=== PATIENT | female | born 1980 | race African-American/Black ===

== ENCOUNTER 2019-11-19 15:28 | Emergency (ER) | payer OTHER ==
[2019-11-19 15:57] LABS: Hematocrit 37.1 % (30.3-42.9); Hemoglobin 12.6 gm/dl (10.1-14.3); Mean Corpuscular HGB Conc 34 % (30-34); Mean Corpuscular Volume 88 fl (79-97); Platelet Count 218 K/mm3 (140-440); Red Blood Count 4.24 M/mm3 (3.65-5.03); Red Cell Distribution Width 13.1 % (13.2-15.2)
[2019-11-19 16:00] LABS: Bilirubin,Urine NEG (Negative); Blood,Urine LG (Negative); Color,Urine Colorless (Yellow); Mucus,Urine FEW /HPF; Protein,Urine <15 mg/dL mg/dL (Negative); Urobilinogen,Urine < 2.0 mg/dL (<2.0); WBC,Urine < 1.0 /HPF (0.0-6.0)
[2019-11-19 16:13] LABS: Alanine Aminotransferase 6 units/L (7-56); Albumin 4.6 g/dL (3.9-5); BUN/Creatinine Ratio 32; Blood Urea Nitrogen 16 mg/dL (7-17); Calcium 9.4 mg/dL (8.4-10.2); Hemolysis Index 14
[2019-11-19] MEDS ORDERED: ACETAMINOPHEN 325 MG TAB PO ONE (16:18)
--- NOTE | 2019-11-19 16:41 | Emergency Department Report ---
ED General Adult HPI - General Chief complaint: Abdominal Pain Stated complaint: 9 WKS PREG, CHEST PAIN Time Seen by Provider: 11/19/19 15:54 Source: business services coordinator Mode of arrival: Ambulatory Limitations: Language Barrier - History of Present Illness Initial comments: Language line used for Palauan interpretation Patient is a 39-year-old female who presents the emergency room with complaints of vaginal bleeding that began 3 days ago. She states that it became slightly heavier today. She has associated suprapubic abdominal pain. She states that she is currently 9 weeks . She has not had her first ultrasound yet. She goes to [facility]. She states that she is only had to change her pad twice today. She denies any nausea, vomiting, diarrhea, fever, dysuria. Her last menstrual cycle was 09/18/2019. /P:1/A:2 Severity scale (0 -10): 10 - Related Data Allergies Allergy/AdvReac Type Severity Reaction Status Date / Time No Known Allergies Allergy Unverified 11/19/19 15:42 ED Review of Systems ROS: Stated complaint: 9 WKS PREG, CHEST PAIN Other details as noted in HPI Comment: All other systems reviewed and negative ED Past Medical Hx - Past Medical History Previous Medical History?: Yes Hx Asthma: Yes - Surgical History Past Surgical History?: No - Social History Smoking Status: Never Smoker Substance Use Type: None ED Physical Exam - General Limitations: Language Barrier General appearance: alert, in no apparent distress - Head Head exam: Present: atraumatic, normocephalic - Eye Eye exam: Present: normal appearance - ENT ENT exam: Present: mucous membranes moist - Respiratory Respiratory exam: Present: normal lung sounds bilaterally. Absent: respiratory distress, wheezes, rales, rhonchi, stridor, chest wall tenderness, accessory muscle use, decreased breath sounds, prolonged expiratory - Cardiovascular Cardiovascular Exam: Present: regular rate, normal rhythm, normal heart sounds. Absent: systolic murmur, diastolic murmur, rubs, gallop - GI/Abdominal GI/Abdominal exam: Present: soft, normal bowel sounds. Absent: distended, tenderness, guarding, rebound, rigid - Neurological Exam Neurological exam: Present: alert, oriented X3 - Psychiatric Psychiatric exam: Present: normal affect, normal mood - Skin Skin exam: Present: warm, dry, intact ED Medical Decision Making - Lab Data Result diagrams: 11/19/19 15:48 11/19/19 15:58 Lab Results 11/19/19 11/19/19 11/19/19 Range/Units 15:48 15:48 15:48 WBC 9.3 (4.5-11.0) K/mm3 RBC 4.24 (3.65-5.03) M/mm3 Hgb 12.6 (10.1-14.3) gm/dl Hct 37.1 (30.3-42.9) % MCV 88 (79-97) fl MCH 30 (28-32) pg MCHC 34 (30-34) % RDW 13.1 L (13.2-15.2) % Plt Count 218 (140-440) K/mm3 Sodium (137-145) mmol/L Potassium (3.6-5.0) mmol/L Chloride (98-107) mmol/L Carbon Dioxide (22-30) mmol/L Anion Gap mmol/L BUN (7-17) mg/dL Creatinine (0.7-1.2) mg/dL Estimated GFR ml/min BUN/Creatinine Ratio % Glucose (65-100) mg/dL Calcium (8.4-10.2) mg/dL Total Bilirubin (0.1-1.2) mg/dL AST (5-40) units/L ALT (7-56) units/L Alkaline Phosphatase (35-129) units/L Total Protein (6.3-8.2) g/dL Albumin (3.9-5) g/dL Albumin/Globulin Ratio % HCG, Quant 47923 H (0-4) mIU/mL Urine Color Colorless (Yellow) Urine Turbidity Clear (Clear) Urine pH 7.0 (5.0-7.0) Ur Specific Ford 1.002 L (1.003-1.030) Urine Protein <15 mg/dl (Negative) mg/dL Urine Glucose (UA) Neg (Negative) mg/dL Urine Ketones Neg (Negative) mg/dL Urine Blood Lg (Negative) Urine Nitrite Neg (Negative) Urine Bilirubin Neg (Negative) Urine Urobilinogen < 2.0 (<2.0) mg/dL Ur Leukocyte Esterase Neg (Negative) Urine WBC (Auto) < 1.0 (0.0-6.0) /HPF Urine RBC (Auto) 1.0 (0.0-6.0) /HPF U Epithel Cells (Auto) < 1.0 (0-13.0) /HPF Urine Mucus Few /HPF Blood Type 11/19/19 11/19/19 Range/Units 15:48 15:58 WBC (4.5-11.0) K/mm3 RBC (3.65-5.03) M/mm3 Hgb (10.1-14.3) gm/dl Hct (30.3-42.9) % MCV (79-97) fl MCH (28-32) pg MCHC (30-34) % RDW (13.2-15.2) % Plt Count (140-440) K/mm3 Sodium 139 (137-145) mmol/L Potassium 3.7 (3.6-5.0) mmol/L Chloride 100.2 (98-107) mmol/L Carbon Dioxide 24 (22-30) mmol/L Anion Gap 19 mmol/L BUN 16 (7-17) mg/dL Creatinine 0.5 L (0.7-1.2) mg/dL Estimated GFR > 60 ml/min BUN/Creatinine Ratio 32 % Glucose 90 (65-100) mg/dL Calcium 9.4 (8.4-10.2) mg/dL Total Bilirubin 0.30 (0.1-1.2) mg/dL AST 14 (5-40) units/L ALT 6 L (7-56) units/L Alkaline Phosphatase 46 (35-129) units/L Total Protein 7.7 (6.3-8.2) g/dL Albumin 4.6 (3.9-5) g/dL Albumin/Globulin Ratio 1.5 % HCG, Quant (0-4) mIU/mL Urine Color (Yellow) Urine Turbidity (Clear) Urine pH (5.0-7.0) Ur Specific Ford (1.003-1.030) Urine Protein (Negative) mg/dL Urine Glucose (UA) (Negative) mg/dL Urine Ketones (Negative) mg/dL Urine Blood (Negative) Urine Nitrite (Negative) Urine Bilirubin (Negative) Urine Urobilinogen (<2.0) mg/dL Ur Leukocyte Esterase (Negative) Urine WBC (Auto) (0.0-6.0) /HPF Urine RBC (Auto) (0.0-6.0) /HPF U Epithel Cells (Auto) (0-13.0) /HPF Urine Mucus /HPF Blood Type O POSITIVE - Radiology Data Radiology results: report reviewed ULTRASOUND OBSTETRIC INDICATION / CLINICAL INFORMATION: Pelvic and right lower quadrant pain. Clinical Gestational Age (GA): 7 weeks 1 day TECHNIQUE: Transabdominal. COMPARISON: None available. FINDINGS: GESTATIONAL SAC: Well-defined oval shape and intrauterine in location. Mean gestational sac diameter of 2.2 cm corresponds to 7 weeks 1 day of gestational age. YOLK SAC: None seen No embryo or pole is seen. ADNEXA: No significant abnormality. FREE FLUID: None. ADDITIONAL FINDINGS: None. IMPRESSION: The finding of an intrauterine gestational sac with a mean diameter of 2.2 cm and no visible embryo is suspicious for, but not diagnostic of, failure. Continued follow- up with serial measurement of beta-hCG is recommended. Signer Name: Regulo Young MD Signed: 11/19/2019 5:40 PM Workstation Name: [id number] Transcribed By: MASTER Dictated By: Regulo Young MD Electronically Authenticated By: Regulo Young MD Signed Date/Time: 11/19/191739 DD/ 34 TD/TT: - Medical Decision Making Language line used for Palauan interpretation Patient is a 39-year-old female who presents the emergency room with complaints of vaginal bleeding that began 3 days ago. She states that it became slightly heavier today. She has associated suprapubic abdominal pain. She states that she is currently 9 weeks . She has not had her first ultrasound yet. She goes to [facility]. She states that she is only had to change her pad twice today. She denies any nausea, vomiting, diarrhea, fever, dysuria. Her last menstrual cycle was 09/18/2019. /P:1/A:2. Vitals are normal. No abdominal tenderness on exam, no guarding, no rebound, no abdominal distention. H&[place] [id number]. Patient is Rh+. US OB: The finding of an intrauterine gestational sac with a mean diameter of 2.2 cm and no visible embryo is suspicious for, but not diagnostic of, failure. Continued follow-up with serial measurement of beta-hCG is recommended. Discussed all results with patient and patient was given ultrasound report. Discussed with patient the importance of following up with [facility] in 2 days for repeat hCG quant. advised pt Please practice pelvic rest. Please follow-up with [facility] in the next 2 days. You need to have a repeat hCG quant in 2 [place] [id number]. Return to the emergency room for any new or worsening symptoms. - Differential Diagnosis IUP, ectopic, subchorionic hemorrhage, threatened/spontaneous miscarriage Critical care attestation.: If time is entered above; I have spent that time in minutes in the direct care of this critically ill patient, excluding procedure time. ED Disposition Clinical Impression: Threatened miscarriage Disposition: DC-01 TO HOME OR SELFCARE Is pt being admited?: No Does the pt Need Aspirin: No Condition: Stable Instructions: Threatened Miscarriage (ED) Additional Instructions: Please practice pelvic rest. Please follow-up with [facility] in the next 2 days. You need to have a repeat hCG quant in 2 [place] [id number]. Return to the emergency room for any new or worsening symptoms. Referrals: [facility] [Provider Group] - 2-3 Days Time of Disposition: 17:50 Print Language: KAZAKH
--- NOTE | 2019-11-19 17:44 | Ultrasound Report ---
ULTRASOUND OBSTETRIC INDICATION / CLINICAL INFORMATION: Pelvic and right lower quadrant pain. Clinical Gestational Age (GA): 7 weeks 1 day TECHNIQUE: Transabdominal. COMPARISON: None available. FINDINGS: GESTATIONAL SAC: Well-defined oval shape and intrauterine in location. Mean gestational sac diameter of 2.2 cm corresponds to 7 weeks 1 day of gestational age. YOLK SAC: None seen No embryo or pole is seen. ADNEXA: No significant abnormality. FREE FLUID: None. ADDITIONAL FINDINGS: None. IMPRESSION: The finding of an intrauterine gestational sac with a mean diameter of 2.2 cm and no visible embryo i s suspicious for, but not diagnostic of, failure. Continued follow-up with serial measureme nt of beta-hCG is recommended. Signer Name: Regulo Young MD Signed: 11/19/2019 5:40 PM Workstation Name: [id number]
[2019-11-20 12:28] VITALS: BP 115/72
== END 2019-11-19 18:25 | disposition home or self-care (01) ==
LOC: ED 15:28
DX: O20.0 Threatened abortion (principal); O99.511 Diseases of the respiratory system complicating pregnancy, first trimester; J45.909 Unspecified asthma, uncomplicated; Z3A.09 9 weeks gestation of pregnancy
CPT/HCPCS: 36415; 76801; 80053; 81001; 84702; 85027; 86900; 86901

== ENCOUNTER 2020-12-02 11:54 | Emergency (ER) | payer SELFPAY ==
--- NOTE | 2020-12-02 12:32 | Event Note ---
ED Screening Note Date of service: 12/02/20 Time: 12:30 ED Screening Note: [facility] and vomiting. Patient is about 8 weeks . Started having severe abdominal pain last night and this morning started having severe bleeding. She is G3, P1 Ab1 This initial assessment/diagnostic orders/clinical plan/treatment(s) is/are subject to change based on patients health status, clinical progression and re- assessment by fellow clinical providers in the ED. Further treatment and workup at subsequent clinical providers discretion. Patient/guardian urged not to elope from the ED as their condition may be serious if not clinically assessed and managed. Initial orders include: Labs
--- NOTE | 2020-12-02 13:32 | Emergency Department Report ---
ED Female HPI - General Chief complaint: Abdominal Pain Stated complaint: Miscarriage Time Seen by Provider: 12/02/20 12:29 Source: patient, family, national sales executive (Tajik national sales executive: [id number]), RN notes reviewed Mode of arrival: Ambulatory Limitations: No Limitations - History of Present Illness Initial comments: The patient was evaluated in the emergency department for symptoms described in the history of present illness. He/she was evaluated in the context of the global COVID-19 pandemic, which necessitated consideration that the patient might be at risk for infection with the virus that causes COVID-19. Institutional protocols and algorithms that pertain to the evaluation of patients at risk for COVID-19 are in a state of rapid change based on information released by regulatory bodies including the CDC and federal and state organizations. These policies and algorithms were followed during the patient's care in the emergency department. Please note that these policies, procedures and recommendations changed on a rapid basis. During the history and physical examination, I am chaperoned by nurse Liz Álvarez Taj[place] national sales executive: [phone] This is a 40-year-old female. Her [facility] doctor is [facility]. She is 2, para 0. She was referred to the emergency room by her outpatient [facility] group for presumed miscarriage. Patient complains of lower abdominal cramping, nausea, and vaginal bleeding. Symptoms present since yesterday. She has had an outpatient ultrasound, but does not recall what it showed. The patient only complains of lower abdominal cramping and denies additional pain in symptoms. The patient denies urinary symptoms. MD Complaint: vaginal bleeding -: Gradual, days(s) Location: suprapubic Severity: mild Quality: cramping Consistency: intermittent Improves with: none Worsens with: none Are you Now?: Yes (Patient reports miscarriage) - Related Data Previous Rx's Medication Instructions Recorded Last Taken Type Acetaminophen [Tylenol] 325 mg PO Q4HR PRN #30 capsule 12/02/20 Unknown Rx Ibuprofen [Motrin] 200 mg PO Q6H PRN #30 tablet 12/02/20 Unknown Rx Ondansetron [Zofran Odt] 4 mg PO Q8HR PRN #20 tab.rapdis 12/02/20 Unknown Rx Allergies Allergy/AdvReac Type Severity Reaction Status Date / Time No Known Allergies Allergy Unverified 11/19/19 15:42 ED Review of Systems ROS: Stated complaint: ABDOMINAL PAIN Other details as noted in HPI Constitutional: fever Respiratory: denies: cough Cardiovascular: denies: chest pain Gastrointestinal: abdominal pain Genitourinary: abnormal menses Musculoskeletal: denies: back pain Neurological: weakness Hematological/Lymphatic: denies: easy bleeding ED Past Medical Hx - Past Medical History Previous Medical History?: Yes Hx Asthma: Yes - Surgical History Past Surgical History?: No - Social History Smoking Status: Never Smoker Substance Use Type: None - Medications Home Medications: Home Medications Medication Instructions Recorded Confirmed Last Taken Type Acetaminophen [Tylenol] 325 mg PO Q4HR PRN #30 capsule 12/02/20 Unknown Rx Ibuprofen [Motrin] 200 mg PO Q6H PRN #30 tablet 12/02/20 Unknown Rx Ondansetron [Zofran Odt] 4 mg PO Q8HR PRN #20 tab.rapdis 12/02/20 Unknown Rx ED Physical Exam - General Limitations: Language Barrier General appearance: alert, in no apparent distress - Head Head exam: Present: atraumatic, normocephalic - Eye Eye exam: Present: normal appearance, EOMI. Absent: nystagmus - ENT ENT exam: Present: normal exam, normal orophraynx, mucous membranes moist, normal external ear exam - Neck Neck exam: Present: normal inspection, full ROM. Absent: tenderness, meningismus - Respiratory Respiratory exam: Present: normal lung sounds bilaterally. Absent: respiratory distress, wheezes, rales, rhonchi, stridor - Cardiovascular Cardiovascular Exam: Present: regular rate, normal rhythm, normal heart sounds. Absent: bradycardia, tachycardia, irregular rhythm, systolic murmur, diastolic murmur, rubs, gallop - GI/Abdominal GI/Abdominal exam: Present: soft. Absent: distended, tenderness, guarding, rebound, rigid, pulsatile mass - External exam: Present: normal external exam, bleeding (Minimal vaginal bleeding noted), other (Chaperoned by nurse Liz Álvarez) - Extremities Exam Extremities exam: Present: normal inspection, full ROM, other (2+ pulses noted in the bilateral upper and lower extremities. There is no palpable cord. negative Homans sign. Muscular compartments are soft. The pelvis is stable.). Absent: pedal edema, calf tenderness - Back Exam Back exam: Present: normal inspection, full ROM. Absent: tenderness, CVA tenderness (R), CVA tenderness (L), paraspinal tenderness, vertebral tenderness - Neurological Exam Neurological exam: Present: alert, other (No facial droop. Tongue midline. Extraocular movements intact bilaterally. Facial sensation intact to light touch in V1, V2, V3 distribution bilaterally. 5 and a 5 strength in 4 extrem ities. Sensation intact to light touch in 4 extremities.) - Psychiatric Psychiatric exam: Present: flat affect - Skin Skin exam: Present: warm, dry, intact, normal color. Absent: rash ED Course Vital Signs 12/02/20 12/02/20 12/02/20 12:24 16:11 17:01 Temperature 98.2 F Pulse Rate 109 H Respiratory 18 Rate Blood Pressure 103/62 Blood Pressure 97/63 [Right] O2 Sat by Pulse 99 100 Oximetry O2 Sat by Pulse 99 Oximetry [ Digit-Finger] - Reevaluation(s) Reevaluation #1: 12/02/20 14:25 Differential diagnosis, including but limited to: Miscarriage, retained products of conception Assessment and plan: 40-year-old female, who is 2, para 0, presenting with lower abdominal cramping without tenderness, scant vaginal bleeding, with probable natural history of miscarriage. Tachycardia resolved. Pelvic ultrasound pending. Has not endorsed any urinary symptoms and specifically denies dysuria. Counseled patient that she is likely experiencing natural history of miscarriage. Laboratory studies pending, ultrasound pending, reassess. Reevaluation #2: 12/02/20 16:04 Discussed patient's history, physical, pertinent laboratory studies and imaging studies with OB on-call, Dr. Saint Monge. She indicates she will have somebody from the group contact the patient to arrange outpatient follow-up, but she requested recommends 48-hour follow-up in the emergency room for repeat CBC, and quant hCG. Tachycardia resolved. Reevaluation #3: 12/02/20 16:11 Heart rate 68 bpm. Blood pressure 109/60. No active vomiting - Pulse Oximetry Interpretation Digit-Finger Initial Pulse Oximetry Readin O2 Sat by Pulse Oximetry: 99 Actions Taken: none ED Medical Decision Making - Lab Data Result diagrams: 12/02/20 13:18 12/02/20 13:18 Vital Signs 12/02/20 12:24 Temperature 98.2 F Pulse Rate 109 H Respiratory 18 Rate Blood Pressure 97/63 [Right] O2 Sat by Pulse 99 Oximetry Lab Results 12/02/20 12/02/20 12/02/20 Range/Units 13:18 13:18 13:18 WBC 8.8 (4.5-11.0) K/mm3 RBC 3.83 (3.65-5.03) M/mm3 Hgb 11.4 (10.1-14.3) gm/dl Hct 33.6 (30.3-42.9) % MCV 88 (79-97) fl MCH 30 (28-32) pg MCHC 34 (30-34) % RDW 13.8 (13.2-15.2) % Plt Count 206 (140-440) K/mm3 Seg Neutrophils % Employment Security Officer Albumin/Globulin Ratio 1.5 % Blood Type O POSITIVE Ord Rhogam Gestat Weeks Rh pos WEEKS Vital Signs 12/02/20 12/02/20 12:24 14:28 Temperature 98.2 F Pulse Rate 109 H Respiratory 18 Rate Blood Pressure 97/63 [Right] O2 Sat by Pulse 99 Oximetry O2 Sat by Pulse 99 Oximetry [ Digit-Finger] Vital Signs 12/02/20 12/02/20 12:24 14:28 Temperature 98.2 F Pulse Rate 109 H Respiratory 18 Rate Blood Pressure 97/63 [Right] O2 Sat by Pulse 99 Oximetry O2 Sat by Pulse 99 Oximetry [ Digit-Finger] Lab Results 12/02/20 12/02/20 12/02/20 Range/Units 13:18 13:18 13:18 WBC 8.8 (4.5-11.0) K/mm3 RBC 3.83 (3.65-5.03) M/mm3 Hgb 11.4 (10.1-14.3) gm/dl Hct 33.6 (30.3-42.9) % MCV 88 (79-97) fl MCH 30 (28-32) pg MCHC 34 (30-34) % RDW 13.8 (13.2-15.2) % Plt Count 206 (140-440) K/mm3 Add Manual Diff Complete Total Counted 100 Seg Neutrophils % Employment Security Officer Seg Neuts % (Manual) 96.0 H (40.0-70.0) % Lymphocytes % (Manual) 2.0 L (13.4-35.0) % Monocytes % (Manual) 2.0 (0.0-7.3) % Nucleated RBC % Not Reportable Seg Neutrophils # Man 8.4 H (1.8-7.7) K/mm3 Band Neutrophils # 0.0 K/mm3 Lymphocytes # (Manual) 0.2 L (1.2-5.4) K/mm3 Abs React Lymphs (Man) 0.0 K/mm3 Monocytes # (Manual) 0.2 (0.0-0.8) K/mm3 Eosinophils # (Manual) 0.0 (0.0-0.4) K/mm3 Basophils # (Manual) 0.0 (0.0-0.1) K/mm3 Metamyelocytes # 0.0 K/mm3 Myelocytes # 0.0 K/mm3 Promyelocytes # 0.0 K/mm3 Blast Cells # 0.0 K/mm3 WBC Morphology Not Reportable Hypersegmented Neuts Not Reportable Hyposegmented Neuts Not Reportable Hypogranular Neuts Not Reportable Smudge Cells Not Reportable Toxic Granulation Not Reportable Toxic Vacuolation Not Reportable Dohle Bodies Not Reportable Pelger-Huet Anomaly Not Reportable Jose Rods Not Reportable Platelet Estimate Consistent w auto Clumped Platelets Not Reportable Plt Clumps, EDTA Not Reportable Large Platelets Not Reportable Giant Platelets Not Reportable Platelet Satelliting Not Reportable Plt Morphology Comment Not Reportable RBC Morphology Normal Dimorphic RBCs Not Reportable Polychromasia Not Reportable Hypochromasia Not Reportable Poikilocytosis Not Reportable Anisocytosis Not Reportable Microcytosis Not Reportable Macrocytosis Not Reportable Spherocytes Not Reportable Pappenheimer Bodies Not Reportable Sickle Cells Not Reportable Target Cells Not Reportable Tear Drop Cells Not Reportable Ovalocytes Not Reportable Helmet Cells Not Reportable Gallego-Edmond Bodies Not Reportable [place] Rings Not Reportable Kiley Cells Not Reportable Bite Cells Not Reportable Crenated Cell Not Reportable Elliptocytes Not Reportable Acanthocytes (Spur) Not Reportable Rouleaux Not Reportable Hemoglobin C Crystals Not Reportable Schistocytes Not Reportable Malaria parasites Not Reportable Mario Bodies Not Reportable Hem Pathologist Commnt No Sodium 136 L (137-145) mmol/L Potassium 3.5 L (3.6-5.0) mmol/L Chloride 102.4 (98-107) mmol/L Carbon Dioxide 22 (22-30) mmol/L Anion Gap 15 mmol/L BUN 10 (7-17) mg/dL Creatinine 0.4 L (0.6-1.2) mg/dL Estimated GFR > 60 ml/min BUN/Creatinine Ratio 25 % Glucose 106 H (65-100) mg/dL Calcium 8.9 (8.4-10.2) mg/dL Magnesium 1.90 (1.7-2.3) mg/dL Total Bilirubin 0.60 (0.1-1.2) mg/dL AST 13 (5-40) units/L ALT 7 (7-56) units/L Alkaline Phosphatase 46 (35-129) units/L Total Protein 7.2 (6.3-8.2) g/dL Albumin 4.3 (3.9-5) g/dL Albumin/Globulin Ratio 1.5 % Lipase 18 (13-60) units/L HCG, Quant 2237 H (0-4) mIU/mL Blood Type Ord Rhogam Gestat Weeks WEEKS 12/02/20 Range/Units 13:18 WBC (4.5-11.0) K/mm3 RBC (3.65-5.03) M/mm3 Hgb (10.1-14.3) gm/dl Hct (30.3-42.9) % MCV (79-97) fl MCH (28-32) pg MCHC (30-34) % RDW (13.2-15.2) % Plt Count (140-440) K/mm3 Add Manual Diff Total Counted Seg Neutrophils % Seg Neuts % (Manual) (40.0-70.0) % Lymphocytes % (Manual) (13.4-35.0) % Monocytes % (Manual) (0.0-7.3) % Nucleated RBC % Seg Neutrophils # Man (1.8-7.7) K/mm3 Band Neutrophils # K/mm3 Lymphocytes # (Manual) (1.2-5.4) K/mm3 Abs React Lymphs (Man) K/mm3 Monocytes # (Manual) (0.0-0.8) K/mm3 Eosinophils # (Manual) (0.0-0.4) K/mm3 Basophils # (Manual) (0.0-0.1) K/mm3 Metamyelocytes # K/mm3 Myelocytes # K/mm3 Promyelocytes # K/mm3 Blast Cells # K/mm3 WBC Morphology Hypersegmented Neuts Hyposegmented Neuts Hypogranular Neuts Smudge Cells Toxic Granulation Toxic Vacuolation Dohle Bodies Pelger-Huet Anomaly Jose Rods Platelet Estimate Clumped Platelets Plt Clumps, EDTA Large Platelets Giant Platelets Platelet Satelliting Plt Morphology Comment RBC Morphology Dimorphic RBCs Polychromasia Hypochromasia Poikilocytosis Anisocytosis Microcytosis Macrocytosis Spherocytes Pappenheimer Bodies Sickle Cells Target Cells Tear Drop Cells Ovalocytes Helmet Cells Gallego-Edmond Bodies [place] Rings [place] Cells Bite Cells Crenated Cell Elliptocytes Acanthocytes (Spur) Rouleaux Hemoglobin C Crystals Schistocytes Malaria parasites Mario Bodies Hem Pathologist Commnt Sodium (137-145) mmol/L Potassium (3.6-5.0) mmol/L Chloride (98-107) mmol/L Carbon Dioxide (22-30) mmol/L Anion Gap mmol/L BUN (7-17) mg/dL Creatinine (0.6-1.2) mg/dL Estimated GFR ml/min BUN/Creatinine Ratio % Glucose (65-100) mg/dL Calcium (8.4-10.2) mg/dL Magnesium (1.7-2.3) mg/dL Total Bilirubin (0.1-1.2) mg/dL AST (5-40) units/L ALT (7-56) units/L Alkaline Phosphatase (35-129) units/L Total Protein (6.3-8.2) g/dL Albumin (3.9-5) g/dL Albumin/Globulin Ratio % Lipase (13-60) units/L HCG, Quant (0-4) mIU/mL Blood Type O POSITIVE Ord Rhogam Gestat Weeks Rh pos WEEKS - Radiology Data Radiology results: pending, report reviewed, image reviewed [facility] [address] [place] [address] Ultrasound Report Signed Patient: ERICA WILLOUGHBY MR#: [id number] : 1980 Acct:[id number] Age/Sex: 40 / F ADM Date: 12/02/20 Loc: ED Attending Dr: Ordering Physician: DANITZA ROBERTSON MD Date of Service: 12/02/20 Procedure(s): US OB <= 14 weeks fetus Accession Number(s): [id number] cc: DANITZA ROBERTSON MD FIRSTTRIME[facility] OBSTETRIC ULTRASOUND HISTORY: Lower abdominal cramping and miscarriage COMPARISON: 11/19/2019 TECHNIQUE: Routine transabdominal OB ultrasound performed. FINDINGS: The uterus is anteverted and mildly enlarged measuring 12.0 x 4.6 x 7.1 cm. No uterine mass is identified. The endometrium near the uterine fundus is normal measuring 5.7 mm. There is impressive thickening and heterogeneity of the lower endometrial segment and cervical canal measuring up to 3.0 cm in diameter. This presumably represents embryonic tissue and is consistent with an impending . The right ovary contains a 2.3 cm simple appearing cyst and measures 3.1 x 2.2 x 4.0 cm. The left ovary is unremarkable measuring 2.6 x 1.6 x 1.7 cm. No pelvic fluid is demonstrated. IMPRESSION No normal intrauterine is identified. An impending spontaneous is suspected as described. 2.3 cm simple appearing right ovarian cyst Signer Name: Contreras Garcia Jr, MD Signed: 12/02/2020 4:02 PM Workstation Name: [id number] Transcribed By: TTR Dictated By: CONTRERAS GARCIA JR, MD Electronically Authenticated By: CONTRERAS GARCIA JR, MD Signed Date/Time: 12/02/20 1602 DD/ 1556 Critical care attestation.: If time is entered above; I have spent that time in minutes in the direct care of this critically ill patient, excluding procedure time. ED Disposition Clinical Impression: Miscarriage, Ovarian cyst Disposition: DC-01 TO HOME OR SELFCARE Is pt being admited?: No Does the pt Need Aspirin: No Condition: Good Instructions: Miscarriage, [id number], Managing Loss, Abdominal Pain (ED) Additional Instructions: Ultrasound today demonstrated a nonspecific cystlike cystlike structure in the uterus, and quantitative hCG/ test was: 2237 The patient has most likely experienced a miscarriage. However, we recommend follow-up in 2 days / 48 hours for repeat ultrasound, and quantitative hCG. We recommend pelvic rest, bedrest, avoidance of heavy lifting, and avoidance of sexual activity. Please follow-up in 2 days for a repeat ultrasound, and for repeat laboratory studies. Patient may follow-up here in the emergency room, or with her outpatient [facility] physician. Please return to the emergency room right away with new pain, worsened pain, migration of pain, projectile vomiting, change in mental status, confusion, inability to tolerate liquid feeds, new, worsened or different symptoms not present on the initial emergency room evaluation. Patient will be prescribed pain medication and nausea medication. Please have your [facility] provider contact the medical records department to obtain copies of laboratory studies and radiology results. Prescriptions: Ibuprofen [Motrin] 200 mg PO Q6H PRN #30 tablet PRN Reason: Pain , Severe (7-10) Acetaminophen [Tylenol] 325 mg PO Q4HR PRN #30 capsule PRN Reason: Pain , Severe (7-10) Ondansetron [Zofran Odt] 4 mg PO Q8HR PRN #20 tab.rapdis PRN Reason: Nausea Referrals: [facility] [Provider Group] - 12/04/20 9:00 am Forms: Work/School Release Form(ED)
[2020-12-02] MEDS ORDERED: LACTATED RINGERS 1,000 ML IV ONE (13:50)
[2020-12-02] MEDS ORDERED: ONDANSETRON 4 MG/2 ML INJ IV ONE (13:50)
[2020-12-02] MEDS ORDERED: ACETAMINOPHEN 325 MG TAB PO ONE (13:50)
[2020-12-02 13:53] LABS: Hematocrit 33.6 % (30.3-42.9); Hemoglobin 11.4 gm/dl (10.1-14.3); Mean Corpuscular HGB Conc 34 % (30-34); Mean Corpuscular Volume 88 fl (79-97); Platelet Count 206 K/mm3 (140-440); Red Blood Count 3.83 M/mm3 (3.65-5.03); Red Cell Distribution Width 13.8 % (13.2-15.2)
[2020-12-02 14:19] LABS: Alanine Aminotransferase 7 units/L (7-56); Albumin 4.3 g/dL (3.9-5); Blood Urea Nitrogen 10 mg/dL (7-17); Calcium 8.9 mg/dL (8.4-10.2); Hemolysis Index 5
[2020-12-02 14:37] LABS: BUN/Creatinine Ratio 25
[2020-12-02 14:45] LABS: Platelet Estimate Consistent w Auto; RBC Morphology Normal; Total Cells Counted 100
--- NOTE | 2020-12-02 16:06 | Ultrasound Report ---
FIRSTTRIMESTER OBSTETRIC ULTRASOUND HISTORY: Lower abdominal cramping and miscarriage COMPARISON: 11/19/2019 TECHNIQUE: Routine transabdominal OB ultrasound performed. FINDINGS: The uterus is anteverted and mildly enlarged measuring 12.0 x 4.6 x 7.1 cm. No uterine mass is identi fied. The endometrium near the uterine fundus is normal measuring 5.7 mm. There is impressive thicken ing and heterogeneity of the lower endometrial segment and cervical canal measuring up to 3.0 cm in d iameter. This presumably represents embryonic tissue and is consistent with an impending . The right ovary contains a 2.3 cm simple appearing cyst and measures 3.1 x 2.2 x 4.0 cm. The left ova ry is unremarkable measuring 2.6 x 1.6 x 1.7 cm. No pelvic fluid is demonstrated. IMPRESSION No normal intrauterine is identified. An impending spontaneous is suspected as zane cribed. 2.3 cm simple appearing right ovarian cyst Signer Name: Contreras Garcia Jr, MD Signed: 12/02/2020 4:02 PM Workstation Name: [id number]
[2020-12-02 18:56] VITALS: BP 103/62
== END 2020-12-02 16:15 | disposition home or self-care (01) ==
LOC: ED 11:54
DX: O03.9 Complete or unspecified spontaneous abortion without complication (principal); O26.90 Pregnancy related conditions, unspecified, unspecified trimester; N83.201 Unspecified ovarian cyst, right side; J45.909 Unspecified asthma, uncomplicated; Z3A.00 Weeks of gestation of pregnancy not specified
CPT/HCPCS: 36415; 76801; 80053; 83690; 83735; 84702; 85007; 85025; 86900; 86901; 96361; 96374; 99284; J2405; J7120

== ENCOUNTER 2021-03-20 09:58 | Emergency (ER) | payer SELFPAY ==
[2021-03-20] MEDS ORDERED: HYDROcodone/ACETAMINOPHEN 5-325 MG TAB PO ONE (10:53)
[2021-03-20] MEDS ORDERED: IBUPROFEN 600 MG TAB PO ONE (10:54)
--- NOTE | 2021-03-20 10:57 | Emergency Department Report ---
ED General Adult HPI - General Chief complaint: Urogenital-Female Stated complaint: VAGINAL PAIN Time Seen by Provider: 03/20/21 10:17 Source: patient Mode of arrival: Ambulatory Limitations: Language Barrier - History of Present Illness Initial comments: 40-year-old [place] patient presents with complaints of vaginal pain x5 days. She denies any vaginal discharge, dysuria/hematuria/urinary frequency, vaginal bleeding, or abdominal pain. She rates her pain as a 10/10 in severity. Pain worsened after using salt and daria in the area. No prior medical history per patient. -: Sudden - Related Data Previous Rx's Medication Instructions Recorded Last Taken Type Acetaminophen [Tylenol] 325 mg PO Q4HR PRN #30 capsule 12/02/20 Unknown Rx Ibuprofen [Motrin] 200 mg PO Q6H PRN #30 tablet 12/02/20 Unknown Rx Ondansetron [Zofran Odt] 4 mg PO Q8HR PRN #20 tab.rapdis 12/02/20 Unknown Rx Acetaminophen/Codeine [Tylenol 1 tab PO Q6H PRN #8 tab 03/20/21 Unknown Rx /Codeine # 3 tab] Ibuprofen [Motrin 800 MG tab] 800 mg PO Q8HR PRN #20 tablet 03/20/21 Unknown Rx Valacyclovir HCl [Valacyclovir] 1,000 mg PO Q12H 10 Days #20 tablet 03/20/21 Unknown Rx Allergies Allergy/AdvReac Type Severity Reaction Status Date / Time No Known Allergies Allergy Unverified 11/19/19 15:42 ED Review of Systems ROS: Stated complaint: VAGINAL PAIN Other details as noted in HPI Constitutional: denies: chills, diaphoresis, fever, malaise, weakness Genitourinary: denies: urgency, dysuria, frequency, hematuria, discharge, abnormal menses, dyspareunia Skin: denies: change in color Hematological/Lymphatic: swollen glands ED Past Medical Hx - Past Medical History Hx Asthma: Yes - Social History Smoking Status: Never Smoker Substance Use Type: None - Medications Home Medications: Home Medications Medication Instructions Recorded Confirmed Last Taken Type Acetaminophen [Tylenol] 325 mg PO Q4HR PRN #30 capsule 12/02/20 Unknown Rx Ibuprofen [Motrin] 200 mg PO Q6H PRN #30 tablet 12/02/20 Unknown Rx Ondansetron [Zofran Odt] 4 mg PO Q8HR PRN #20 tab.rapdis 12/02/20 Unknown Rx Acetaminophen/Codeine [Tylenol 1 tab PO Q6H PRN #8 tab 03/20/21 Unknown Rx /Codeine # 3 tab] Ibuprofen [Motrin 800 MG tab] 800 mg PO Q8HR PRN #20 tablet 03/20/21 Unknown Rx Valacyclovir HCl [Valacyclovir] 1,000 mg PO Q12H 10 Days #20 tablet 03/20/21 Unknown Rx ED Physical Exam - General Limitations: Language Barrier General appearance: alert, in no apparent distress - Head Head exam: Present: atraumatic, normocephalic - Eye Eye exam: Present: normal appearance - Respiratory Respiratory exam: Absent: respiratory distress - Cardiovascular Cardiovascular Exam: Present: regular rate - External exam: Present: other (Single approximately 1 to 2 cm shallow ulceration noted to left labia minora with significant tenderness to palpation; left inguinal lymphadenopathy noted) - Neurological Exam Neurological exam: Present: alert, oriented X3 - Psychiatric Psychiatric exam: Present: normal affect, normal mood - Skin Skin exam: Present: warm, dry, intact, normal color ED Course Vital Signs 03/20/21 10:06 Temperature 97.8 F Pulse Rate 75 Respiratory 16 Rate Blood Pressure 111/72 O2 Sat by Pulse 100 Oximetry ED Medical Decision Making - Medical Decision Making 40-year-old [place] patient presents with complaints of vaginal pain x5 days. She denies any vaginal discharge, dysuria/hematuria/urinary frequency, vaginal bleeding, or abdominal pain. She rates her pain as a 10/10 in severity. Pain worsened after using salt and daria in the area. No prior medical history per patient. On exam, patient has a single 1 to 2 cm shallow ulceration on the left labia minora. Genital herpes versus syphilis. Blood syphilis test is negative. Will treat for genital herpes with valacyclovir. Recommend follow-up with primary care in 3 to 5 days. Patient is well-appearing, her vitals are normal, she is stable for discharge home. Strict return precautions were discussed in detail with patient states understanding peer Critical care attestation.: If time is entered above; I have spent that time in minutes in the direct care of this critically ill patient, excluding procedure time. ED Disposition Clinical Impression: Genital herpes, Vaginal pain Disposition: HOME / SELF CARE / HOMELESS Is pt being admited?: No Condition: Stable Instructions: Genital Herpes Prescriptions: Ibuprofen [Motrin 800 MG tab] 800 mg PO Q8HR PRN #20 tablet PRN Reason: Pain, Moderate (4-6) Acetaminophen/Codeine [Tylenol /Codeine # 3 tab] 1 tab PO Q6H PRN #8 tab PRN Reason: Pain , Severe (7-10) Valacyclovir HCl [Valacyclovir] 1,000 mg PO Q12H 10 Days #20 tablet Referrals: PRIMARY CARE, [Primary Care Provider] - 3-5 Days [facility] [Provider Group] - 3-5 Days
[2021-03-20 13:41] LABS: Bilirubin,Urine NEG (Negative); Blood,Urine MOD (Negative); Color,Urine Yellow (Yellow); Mucus,Urine FEW /HPF; Protein,Urine <15 mg/dL mg/dL (Negative); Urobilinogen,Urine < 2.0 mg/dL (<2.0)
[2021-03-20 14:19] VITALS: BP 105/67
== END 2021-03-20 14:19 | disposition home or self-care (01) ==
LOC: ED 09:58
DX: A60.00 Herpesviral infection of urogenital system, unspecified (principal); J45.909 Unspecified asthma, uncomplicated; Z79.899 Other long term (current) drug therapy
CPT/HCPCS: 36415; 81001; 84703; 86592; 87086; 99283